=== PATIENT | female | born 1950 | race Caucasian/White ===

== ENCOUNTER 2019-01-08 12:23 | Emergency (ER) | payer BC, OTHER ==
--- NOTE | 2019-01-08 12:47 | PDOC ---
History of Present Illness - General Chief Complaint: Pain Stated Complaint: ABD PAIN Time Seen by Provider: 01/08/19 12:46 History Source: Patient, Family - History of Present Illness Initial Comments: 01/08/19 14:40 Ms. Elmore is a 68 y/o woman with recent admission at [facility] for a bowel obstruction four weeks ago. At that time she had an NG tube placed, and was admitted for a few days. She reports that at that time she did not undergo any surgical intervention and was discharged a few days later as her symptoms improved slightly. She reports that since her discharge, she has had ongoing lower abdominal pain for the last three weeks. She reports a normal appetite, denies any difficulty tolerating food or drink po, and reports normal bowel movements since her discharge. She denies any nausea, vomiting, fevers, chills, chest pain, shortness of breath, fatigue. She rates the pain 10/10, constant, described as an ache, non-radiating. She reports that the pain has been significant enough that it has been impacting her daily life, as she has not wanted to leave the house due to the pain. Past History - Past Medical History Allergies/Adverse Reactions: Allergies Allergy/AdvReac Type Severity Reaction Status Date / Time AMOXICILLIN AdvReac Mild ABDOMINAL Uncoded 01/08/19 12:25 PAIN Home Medications: Ambulatory Orders Amlodipine Besylate [Norvasc -] 5 mg PO DAILY 10/30/11 Ascorbate Calcium [Vitamin C] 1,500 mg PO DAILY 03/26/15 Cholecalciferol (Vitamin D3) [Vitamin D] 2,000 unit PO DAILY 03/26/15 Clonazepam [Klonopin] 0.5 mg PO DAILY PRN 03/26/15 Fluoxetine HCl [Prozac] 60 mg PO DAILY 03/26/15 Multivitamins [Tab-A-Vit -] 1 tab PO DAILY 03/26/15 Anemia: No Asthma: No Cancer: No Cardiac Disorders: No CVA: No COPD: No CHF: No Dementia: No Diabetes: No GI Disorders: Yes (DIVERTICULITIS) Disorders: No HTN: Yes Hypercholesterolemia: No Liver Disease: No Seizures: No Thyroid Disease: No - Surgical History Abdominal Surgery: No Appendectomy: No Cardiac Surgery: No Cholecystectomy: No Lung Surgery: No Neurologic Surgery: No Orthopedic Surgery: No - Suicide/Smoking/Psychosocial Hx Smoking Status: Yes Smoking History: Current every day smoker Years of Tobacco Use: 30 Have you smoked in the past 12 months: Yes Number of Cigarettes Smoked Daily: 4 Hx Alcohol Use: No Drug/Substance Use Hx: No Substance Use Type: None Hx Substance Use Treatment: No Review of Systems - Review of Systems Able to Perform ROS?: Yes Comments:: 01/08/19 15:10 ROS: GENERAL/CONSTITUTIONAL: No fever or chills. No weakness. HEAD, EYES, EARS, NOSE AND THROAT: No change in vision. No ear pain or discharge. No sore throat. CARDIOVASCULAR: No chest pain or shortness of breath RESPIRATORY: No cough, wheezing, or hemoptysis. GASTROINTESTINAL: Abdominal pain. No nausea, vomiting, diarrhea or constipation. GENITOURINARY: No dysuria, frequency, or change in urination. MUSCULOSKELETAL: No joint or muscle swelling or pain. No neck or back pain. SKIN: No rash NEUROLOGIC: No headache, vertigo, loss of consciousness, or change in strength/ sensation. ENDOCRINE: No increased thirst. No abnormal weight change HEMATOLOGIC/LYMPHATIC: No anemia, easy bleeding, or history of blood clots. ALLERGIC/IMMUNOLOGIC: No hives or skin allergy. *Physical Exam - Physical Exam Comments: 01/08/19 15:11 PE: GENERAL: Awake, alert, and fully oriented, moderate distress, grimacing. HEAD: No signs of trauma, normocephalic, atraumatic EYES: PERRLA, EOMI, sclera anicteric, conjunctiva clear ENT: Auricles normal inspection, hearing grossly normal, nares patent, oropharynx clear without exudates. Moist mucosa NECK: Normal ROM, supple, no lymphadenopathy, JVD, or masses LUNGS: No distress, speaks full sentences, clear to auscultation bilaterally HEART: Regular rate and rhythm, normal S1 and S2, no murmurs, rubs or gallops, peripheral pulses normal and equal bilaterally. ABDOMEN: Tenderness to palpation bilateral lower quadrants, L > R. Soft, normoactive bowel sounds. No guarding, no rebound, no distension. No masses EXTREMITIES : Normal inspection, Normal range of motion, no edema. No clubbing or cyanosis NEUROLOGICAL: Cranial nerves II through XII grossly intact. Normal speech, no focal sensorimotor deficits SKIN: Warm, Dry, normal turgor, no rashes or lesions noted ED Treatment Course - LABORATORY CBC & Chemistry Diagram: 01/08/19 14:27 01/08/19 14:27 Medical Decision Making - Medical Decision Making 01/08/19 14:07 68 F with hx prior obstruction p/w three weeks of abdominal pain after discharge from admission for small bowel obstruction, abdominal tenderness LLQ > RLQ. Acute bowel obstruction unlikely given duration of symptoms with normal appetite, normal bowel movements, no N/V. Colitis possible given location of pain vs other abdominal pathology. Plan: CBC CMP UA Urine culture CXR EKG Cardiac profile CT abdomen pelvis pending creatinine result 4mg Morphine for pain control Zofran Dispo: Pending labs, imaging 01/08/19 18:19 CT negative for acute process. Pain controlled. Plan for PO challenge, UA, likely discharge home --- PO challenge passed, UA negative. Plan for discharge home with close PCP follow up. *DC/Admit/Observation/Transfer Diagnosis at time of Disposition: Abdominal pain Qualifiers: Abdominal location: lower abdomen, unspecified Qualified Code(s): R10.30 - Lower abdominal pain, unspecified - Discharge Dispostion Disposition: HOME Condition at time of disposition: Stable Decision to Admit order: No - Referrals - Patient Instructions Printed Discharge Instructions: DI for Abdominal Pain-Adult Additional Instructions: You were evaluated in the emergency department for abdominal pain. Your bloodwork was normal - no signs of infection, heart strain. Your chest x ray and CT scan were negative - no signs of intestinal perforation or bowel obstruction. Please follow up with your primary care provider as soon as possible, within the next seven days. For pain control, please take extra strength tylenol over the counter, alternated with motrin, every 6-8 hours as needed. Please return to the emergency department if you develop any high fevers , severe nausea and vomiting, chest pain, shortness of breath, or your abdomen becomes rigid. - Post Discharge Activity
[2019-01-08] MEDS ORDERED: ONDANSETRON 4 MG/2 ML VIAL IVPUSH ONE (13:14)
[2019-01-08] MEDS ORDERED: morphine CARPU-JECT 4 MG/1 ML DISP.SYRIN IVPUSH ONE ×2 (13:14→16:47)
[2019-01-08 13:20] VITALS: BP 119/78; PULSE 76; TEMP 98.7; BMI 16.9
[2019-01-08] MEDS ORDERED: SODIUM CHLORIDE 1,000 ML IV STA (13:55)
[2019-01-08 14:47] LABS: BASO % 0.8 % (0-2.0); EOS % 1.2 % (0-4.5); HEMATOCRIT 44.9 % (32.4-45.2); HEMOGLOBIN 15.2 GM/dL (10.7-15.3); LYMPH % 17.1 % (8-40); MCH 31.8 pg (25.7-33.7); MCHC 33.9 g/dl (32.0-36.0); MEAN CELL VOLUME 93.9 fl (80-96); MONO % 5.7 % (3.8-10.2); NEUT % 75.2 % (42.8-82.8); PLATELET COUNT 194 K/MM3 (134-434); RBC 4.78 M/mm3 (3.60-5.2); RDW 15.6 % (11.6-15.6); WHITE BLOOD COUNT 7.6 K/mm3 (4.0-10.0)
[2019-01-08] MEDS ORDERED: morphine SULFATE 4 MG/ML VIAL ONE (15:05)
[2019-01-08] MEDS ORDERED: ONDANSETRON 4 MG/2 ML VIAL ONE (15:05)
[2019-01-08 15:24] LABS: ALBUMIN 3.9 g/dl (3.4-5.0); ALK PHOS 109 U/L (45-117); ANION GAP 7 MMOL/L (8-16); BILIRUBIN,TOTAL 0.4 mg/dL (0.2-1); BLOOD UREA NITROGEN 21.7 mg/dL (7-18); CALCIUM 9.8 mg/dL (8.5-10.1); CHLORIDE 104 mmol/L (98-107); CO2 29 mmol/L (21-32); CREATININE 0.7 mg/dL (0.55-1.3); GLUCOSE,RANDOM 60 mg/dL (74-106); POTASSIUM 4.3 mmol/L (3.5-5.1); SGOT/AST 35 U/L (15-37); SGPT/ALT 37 U/L (13-61); SODIUM 140 mmol/L (136-145); TOT PROT 6.5 g/dl (6.4-8.2)
[2019-01-08] MEDS ORDERED: ACETAMINOPHEN 1000 MG/100 ML VIAL (NON FORMULARY) IVPB ONE (15:32)
[2019-01-08] MEDS ORDERED: ACETAMINOPHEN INJECTION 100 ML IVPB ONE (15:35)
--- NOTE | 2019-01-08 16:05 | PDOC ---
Documentation entered by Bolivar Alvarado SCRIBE, acting as scribe for Dae Atkins MD. Dae Atkins MD: This documentation has been prepared by the Jenny barber Renju, SCRIBE, under my direction and personally reviewed by me in its entirety. I confirm that the documentation accurately reflects all work, treatment, procedures, and medical decision making performed by me. Attending Attestation - Resident Resident Name: RomeliagloriaLinwood - ED Attending Attestation I have performed the following: I have examined & evaluated the patient, The case was reviewed & discussed with the resident, I agree w/resident's findings & plan, Exceptions are as noted - HPI HPI: 01/08/19 15:08 The patient is a 68 year old female with past medical history of SBO who presents to the emergency department for evaluation of lower abdominal pain. Patient states she had a SBO 3 weeks ago at [facility] where she had an NG tube placed, which was removed at discharge. Since then, patient reports worsening lower abdominal pain. She endorses mild chest pain, fevers, chills, and nausea. She reports having regular bowel movement and denies any decrease in PO tolerance. Patient endorses a decrease in flatus. She states she is currently taking Gasx. Denies vomiting. - Physicial Exam PE: 01/08/19 15:08 ROS: A complete review of 10 out of 10 review of systems is taken and is negative apart from what is previously mentioned below and in the HPI. Vitals: Triage Vital signs reviewed General Appearance: no acute distress, well nourished well developed, Head: Atraumatic, Eyes: Pupils equal reactive round, extraocular movement intact Neck: Supple; Chest Wall: Nontender Cardiac: Regular rate and rhythm, no murmurs, no rubs, no gallops, Lungs: Clear to auscultation bilaterally, good air movement bilaterally, Abdomen:(+)Diffuse lower abdominal tenderness Extremities: Full range of motion to all extremities, no cyanosis, clubbing, or edema Skin: Warm and dry, no rashes or lesions, no rash, no petechiae Neuro: Strength intact to all extremities, Sensation intact to all extremities, gait normal Psych: normal mood, normal affect - Medical Decision Making 01/08/19 16:01 The patient is a 68 year old female with past medical history of SBO who presents to the emergency department for evaluation of lower abdominal pain. Patient states she had a SBO 3 weeks ago at [facility] where she had an NG tube placed, which was removed at discharge. Since then, patient reports worsening lower abdominal pain. She endorses mild chest pain, fevers, chills, and nausea. She reports having regular bowel movement and denies any decrease in PO tolerance. Patient endorses a decrease in flatus. She states she is currently taking Gasx. Denies vomiting. Will check, labs, CT abd pelvis, hydrate pain meds and reasses Dr. An to follow up CT and dispo
[2019-01-08 18:16] LABS: URINE APPEARANCE CLEAR; URINE BILIRUBIN NEGATIVE (NEGATIVE); URINE COLOR YELLOW; URINE GLUCOSE (UA) NEGATIVE (NEGATIVE); URINE KETONE NEGATIVE (NEGATIVE); URINE LEUK ESTERASE NEGATIVE (NEGATIVE); URINE NITRITE NEGATIVE (NEGATIVE); URINE PROTEIN NEGATIVE (NEGATIVE); URINE UROBILINOGEN 0.2 mg/dL (0.2-1.0)
--- NOTE | 2019-01-09 11:28 | EKG ---
Test Reason : Blood Pressure : / mmHG Vent. Rate : 059 BPM Atrial Rate : 059 BPM P-R Int : 146 ms QRS Dur : 080 ms QT Int : 454 ms P-R-T Axes : 056 -10 049 degrees QTc Int : 449 ms SINUS BRADYCARDIA POSSIBLE LEFT ATRIAL ENLARGEMENT NONSPECIFIC T WAVE ABNORMALITY ABNORMAL ECG NO PREVIOUS ECGS AVAILABLE Confirmed by RAJEEV REDDY, TYLOR ([id number]) on 01/09/2019 11:28:31 AM Referred By: Confirmed By:TYLOR BOO MD
== END 2019-01-08 18:00 | disposition home or self-care (01) ==
LOC: JER 12:23
PROC: 3E0337Z Introduction of Electrolytic and Water Balance Substance into Peripheral Vein, Percutaneous Approach (ICD-10-PCS; principal; 2019-01-08)
PROC: 3E033NZ Introduction of Analgesics, Hypnotics, Sedatives into Peripheral Vein, Percutaneous Approach (ICD-10-PCS; 2019-01-08)
PROC: 3E033NZ Introduction of Analgesics, Hypnotics, Sedatives into Peripheral Vein, Percutaneous Approach (ICD-10-PCS; 2019-01-08)
PROC: 3E033GC Introduction of Other Therapeutic Substance into Peripheral Vein, Percutaneous Approach (ICD-10-PCS; 2019-01-08)
DX: R10.30 Lower abdominal pain, unspecified (principal); Z87.19 Personal history of other diseases of the digestive system; I10 Essential (primary) hypertension
CPT/HCPCS: 36415; 71046-TC-FY; 74177-TC; 80053; 81003; 82550; 83605; 83690; 84484; 85025; 87086; 93005; 93010; 99284-25; J0131; J7030